=== PATIENT | female | born 1955 | race Caucasian/White ===

== ENCOUNTER 2021-05-11 06:50 | Day surgery (SDC) | payer MEDICARE, BC ==
[~2021-05-11 06:50] MED LIST: Lactated Ringers 1,000 ML IV SCH; Lidocaine 1%/Sod Bicarbonate in NS 8.4% 1 ML Syringe IDERM PRN; Sodium Chloride 0.9% 10 ML Syringe FLUSH PRN
--- NOTE | 2021-05-11 07:19 | PCM.PREANE ---
Preanesthetic Assessment - Procedure Proposed Procedure: Colonoscopy - Anesthesia/Transfusion/Family Hx Anesthesia History: Prior Anesthesia Without Reaction Family History of Anesthesia Reaction: No Transfusion History: No Prior Transfusion(s) - Review of Systems General: No Symptoms Pulmonary: No Symptoms Cardiovascular: No Symptoms Gastrointestinal: No Symptoms Neurological: No Symptoms Other: Reports: Liver Problems (high enzimes), Thyroid Problems (hypothyroid) - Physical Assessment NPO Status Date: 05/12/21 NPO Status Time: 03:30 Height: 1.57 m Weight: 66.2 kg ASA Class: 2 Mental Status: Alert & Oriented x3 Airway Class: Mallampati = 1 Dentition: Reports: Normal Dentition Thyro-Mental Finger Breadths: 3 Mouth Opening Finger Breadths: 3 ROM/Head Extension: Full Lungs: Clear to Auscultation, Normal Respiratory Effort Cardiovascular: Regular Rate, Regular Rhythm - Allergies Allergies/Adverse Reactions: Allergies Allergy/AdvReac Type Severity Reaction Status Date / Time nickel Allergy Rash Verified 05/10/21 15:57 - Anesthesia Plan Pre-Op Medication Ordered: None - Acknowledgements Anesthesia Type Planned: MAC Pt an Appropriate Candidate for the Planned Anesthesia: Yes Alternatives and Risks of Anesthesia Discussed w Pt/Guardian: Yes Pt/Guardian Understands and Agrees with Anesthesia Plan: Yes PreAnesthesia Questionnaire HEENT History: Reports: Impaired Vision Other HEENT History: wears glasses Cardiovascular History: Reports: High Cholesterol, Hypertension Respiratory History: Reports: None Gastrointestinal History: Reports: Other (See Below) Other Gastrointestinal History: elevated LFTs Genitourinary History: Reports: None CERTIFIED NURSE MIDWIFE History: Reports: None Other Musculoskeletal History: bunion surgery both feet 25 years ago Neurological History: Reports: Other (See Below) Other Neuro History: [place] viral meningitis April 2015 Psychiatric History: Reports: Other (See Below) Other Psychiatric History: fatigue Endocrine/Metabolic History: Reports: Hypothyroidism Other Endocrine/Metabolic History: thyroid goiter, thyroid mass Hematologic History: Reports: None Other Immunologic History: [place] virus Summer 2014 Oncologic (Cancer) History: Reports: None Dermatologic History: Reports: None - Past Surgical History Head Surgeries/Procedures: Reports: None HEENT Surgical History: Reports: None Cardiovascular Surgical History: Reports: None Respiratory Surgical History: Reports: None GI Surgical History: Reports: None Female Surgical History: Reports: Section Male Surgical History: Reports: None Endocrine Surgical History: Reports: Thyroidectomy Neurological Surgical History: Reports: None Oncologic Surgical History: Reports: None Dermatological Surgical History: Reports: None - SUBSTANCE USE Tobacco Use Status *Q: Never Tobacco User Tobacco Use Within Last Twelve Months: No Second Hand Smoke Exposure: No Days Per Week of Alcohol Use: 1 Number of Drinks Per Day: 0 Total Drinks Per Week: 0 Recreational Drug Use History: No - HOME MEDS Home Medications: Home Meds Calcium Carb, Citrate/Vit D3 [Calcium + D3 ER Tablet] 1 tab PO DAILY 05/10/21 [History] Cholecalciferol (Vitamin D3) [Vitamin D3] 5,000 unit PO DAILY 05/10/21 [History] FA/Lycopene/Lut/MV,Ca,Iron,Min [Centrum] 1 tab PO DAILY 05/10/21 [History] Levothyroxine Sodium [Levothyroxine] 112 mcg PO DAILY 05/10/21 [History] Rosuvastatin Calcium 20 mg PO DAILY 05/10/21 [History] Ubidecarenone [Coq-10] 100 mg PO DAILY 05/10/21 [History] Vitamin B Complex [B Complex] 1 tab PO DAILY 05/10/21 [History] amLODIPine [Norvasc] 5 mg PO DAILY 05/10/21 [History] - CURRENT (IN HOUSE) MEDS Current Meds: Current Medications Lactated Ringer's (Ringers, Lactated) 1,000 mls @ 125 mls/hr IV ASDIRECTED CIELO Stop: 05/11/21 23:00 Lidocaine/Sodium Bicarbonate (Lidocaine 1%/Sod Bicarbonate In Ns 8.4% 1 Ml Syringe) 0.25 ml IDERM ONETIME PRN PRN Reason: Prior to IV Start Stop: 05/11/21 18:00 Sodium Chloride (Sodium Chloride 0.9% 10 Ml Syringe) 10 ml FLUSH ASDIRECTED PRN PRN Reason: Keep Vein Open Stop: 05/11/21 18:00
[2021-05-11] MEDS ORDERED: Midazolam 1 MG/ML 2 ML SDV ONE (07:32)
[2021-05-11] MEDS ORDERED: Propofol 200 MG/20 ML SDV ONE (07:32)
[2021-05-11] MEDS ORDERED: fentaNYL 100 MCG/2 ML SDV ONE (07:32)
[2021-05-11] MEDS ORDERED: Lidocaine 1% 4 ML ONE (07:33)
--- NOTE | 2021-05-11 08:25 | PCM.PRNOTE ---
- Free Text/Narrative Note: Date: 05/11/2021 Procedure: initial screening colonoscopy History: average risk for colon cancer, no GI symptoms Endoscopist: Nabil Yepez MD Findings: excellent prep. Some bubbles. Small subcentimeter benign appearing polyp in sigmoid removed with cold forceps. Hypertrophied anal papillae. No other pathology noted. Detailed Report: The patient was taken to the endoscopy suite and placed in left lateral decubitus position. Timeout was performed and monitored anesthesia care was initiated. Visual inspection of the anus revealed no abnormality. Digital rectal exam was remarkable only for palpable hypertrophied anal papilla. The colonoscope was then inserted and advanced all the way to the cecum with ease. The appendiceal orifice was visualized. Prep was excellent, although there was one section of colon that was obscured due to bubbles. The scope was slowly withdrawn and mucosal surfaces carefully inspected. A single subcentimeter benign-appearing polyp was identified in the sigmoid colon. This was removed entirely using cold forceps. No other polyps were identified. There was no evidence of diverticular disease. No hemorrhoidal disease was appreciated on retroflexion in the rectum; the hypertrophied anal papilla were visualized. Air was suctioned from the distal colon and rectum prior to withdrawal of the scope. The patient tolerated the procedure well.
[2021-05-11 11:49] VITALS: BP 148/80; PULSE 65
== END 2021-05-11 09:32 | disposition home or self-care (01) ==
LOC: JD.SDS 06:50
PROVIDERS: ATTEND Surgery
DX: Z12.11 Encounter for screening for malignant neoplasm of colon (principal); K63.5 Polyp of colon; K62.89 Other specified diseases of anus and rectum; E78.5 Hyperlipidemia, unspecified; I10 Essential (primary) hypertension; E03.9 Hypothyroidism, unspecified; E55.9 Vitamin D deficiency, unspecified; Z79.890 Hormone replacement therapy; Z79.899 Other long term (current) drug therapy
CPT/HCPCS: 45380; 88305; J2250; J2704; J3010; J7120; 00812